=== PATIENT | female | born 1970 | race African-American/Black ===

== ENCOUNTER 2020-05-08 17:11 | Emergency (ER) | payer OTHER ==
[~2020-05-08] VITALS: Ht 170.2 cm; Wt 134.1 kg
[~2020-05-08 17:11] MED LIST: BENAZEPRIL; HCTZ; NORVIR; PREZISTA; TRUVADA
[2020-05-08 17:13] VITALS: BP 122/90
[2020-05-08] MEDS ORDERED: BENA20TA10 PO (17:16)
[2020-05-08] MEDS ORDERED: DARU1TAB3 PO (17:16)
== END 2020-05-08 18:20 | disposition home or self-care (01) ==
LOC: EMS 17:17
DX: T78.40XA Allergy, unspecified, initial encounter (principal); I10 Essential (primary) hypertension; F12.90 Cannabis use, unspecified, uncomplicated; X58.XXXA Exposure to other specified factors, initial encounter
CPT/HCPCS: Z7502

== ENCOUNTER 2025-02-22 11:03 | Emergency (ER) | payer OTHER ==
[~2025-02-22] VITALS: Ht 170.2 cm; Wt 121.8 kg
[~2025-02-22 11:03] MED LIST changes: +BENA-8 PO; -BENAZEPRIL; +DARU1TAB3 PO; -HCTZ; -NORVIR; -PREZISTA; -TRUVADA
[2025-02-22 11:20] VITALS: TEMP 98.1
[2025-02-22] MEDS ORDERED: CHOL10002 PO (11:29)
[2025-02-22] MEDS ORDERED: ATOR10TA69 PO (11:29)
[2025-02-22] MEDS ORDERED: SEMA1PEN5 SQ (11:29)
[2025-02-22] MEDS ORDERED: AMLO5TAB66 PO (11:29)
[2025-02-22] MEDS ORDERED: FERR325T23 PO (11:29)
[2025-02-22 11:38] LABS: BASOPHILS % (AUTO) 1.1 % (0.0-2.0); EOSINOPHILS % (AUTO) 3.6 % (1.0-6.0); HEMATOCRIT 42.1 % (36-46); HEMOGLOBIN 13.1 g/dL (12.0-16.0); LYMPHOCYTES # (AUTO) 2.6 K/uL (1.0-4.8); MEAN CORPUSCULAR HEMOGLOBIN 23.2 pg (26.0-34.0); MEAN CORPUSCULAR HGB CONC 31.2 G/dL (31.0-37.0); MEAN CORPUSCULAR VOLUME 75 fL (80-100); MONOCYTES # (AUTO) 0.5 K/uL (0.1-1.0); MONOCYTES % (AUTO) 8.1 % (2.0-9.0); NEUTROPHILS # (AUTO) 3.3 K/uL (1.8-7.7); NEUTROPHILS % (AUTO) 49.2 % (40.0-70.0); PLATELET COUNT (AUTO) 285 K/uL (150-450); RED BLOOD CELL COUNT(AUTO) 5.66 MIL/uL (4.00-5.20); RED CELL DISTRIBUTION WIDTH 15.2 % (11.5-14.5); WHITE BLOOD COUNT (AUTO) 6.8 K/uL (4.5-11.0)
[2025-02-22 11:51] LABS: ANION GAP 9 mmol/L (8-16); CALCIUM, TOTAL 9.4 mg/dL (8.8-10.5); CARBON DIOXIDE 26 mmol/L (22-29); CHLORIDE 104 mmol/L (98-107); CREATININE 0.78 mg/dL (0.60-1.30); GLOMERULAR FILTR. RATE CALC > 60 mL/min (>60); GLUCOSE,RANDOM 81 mg/dL (70-110); POTASSIUM 4.7 mmol/L (3.5-5.1); SODIUM SERUM 139 mmol/L (136-145); UREA NITROGEN, BLOOD 8 mg/dL (7-18)
[2025-02-22 11:58] LABS: ALBUMIN 3.5 g/dL (3.4-5.0); BILIRUBIN,DIRECT 0.2 mg/dL (0.00-0.20); BILIRUBIN,TOTAL 0.6 mg/dL (0.1-1.0); TOTAL PROTEIN, SERUM 8.5 g/dL (6.4-8.2); TROPONIN I-HIGH SENSITIVITY Less Than 4 ng/L (<51)
[2025-02-22] MEDS: ASPIRIN 81 MG CHEWABLE TABLET PO ONE (12:03)
[2025-02-22 12:25] LABS: RBC MORPHOLOGY COMMENT ABNORMAL RBC MORPH
[2025-02-22 13:13] VITALS: BP 134/75; PULSE 61; RESP 17; O2SAT 98
== END 2025-02-22 13:14 | disposition home or self-care (01) ==
LOC: EMS 11:08
DX: M25.512 Pain in left shoulder (principal); I10 Essential (primary) hypertension; F12.90 Cannabis use, unspecified, uncomplicated; Z79.899 Other long term (current) drug therapy
CPT/HCPCS: 71045; 80048; 80076; 84484; 85025; 93005; 99285; 36415-L1; 36415-TC